=== PATIENT | male | born 1960 | race Caucasian/White ===

== ENCOUNTER 2017-10-04 06:15 | Day surgery (SDC) | payer BC ==
[2017-10-04] MEDS: LACTATED RINGER'S 1,000 ML IV (06:57)
[2017-10-04] MEDS ORDERED: MIDAZOLAM 1 MG/ML 2 ML INJ (07:00)
[2017-10-04] MEDS ORDERED: CEFAZOLIN 1 GM INJ (07:00)
[2017-10-04] MEDS ORDERED: DEXAMETHASONE 4 MG/ML 1 ML INJ (07:00)
[2017-10-04] MEDS ORDERED: LIDOCAINE 2% (SDV) 5 ML INJ (07:00)
[2017-10-04] MEDS ORDERED: ONDANSETRON 4 MG INJ (07:00)
[2017-10-04] MEDS ORDERED: FENTAnyl 50 MCG/ML VIAL (07:00)
[2017-10-04] MEDS ORDERED: PROPOFOL 200 MG INJ (07:00)
[2017-10-04] MEDS ORDERED: METOCLOPRAMIDE 10 MG INJ (07:00)
[2017-10-04] MEDS: BUPIVACAINE 0.25% (MPF) 30 ML INJ (08:46)
[2017-10-04] MEDS ORDERED: morphine 2 MG INJ IV (09:00)
[2017-10-04] MEDS ORDERED: OXYCODONE/ACETAMINOPHEN (5/325) TAB PO ×2 (09:00)
[2017-10-04] MEDS ORDERED: ONDANSETRON 4 MG INJ IV ×2 (09:00→09:30)
[2017-10-04] MEDS ORDERED: FENTAnyl 50 MCG/ML VIAL IV ×2 (09:30)
[2017-10-04] MEDS ORDERED: MEPERIDINE 25 MG INJ IV (09:30)
[2017-10-04] MEDS ORDERED: HYDROmorphONE 1 MG/5 ML IV SYRINGE IV ×2 (09:30)
[2017-10-04] MEDS ORDERED: KETOROLAC 30 MG INJ IV (09:30)
[2017-10-04] MEDS ORDERED: DIPHENHYDRAMINE 50 MG INJ IV (09:30)
== END 2017-10-04 11:28 | disposition home or self-care (01) ==
LOC: SDS 06:15
DX: K40.90 Unilateral inguinal hernia, without obstruction or gangrene, not specified as recurrent (principal)
CPT/HCPCS: 49505